=== PATIENT | female | born 2000 | race Caucasian/White ===

== ENCOUNTER 2023-12-24 12:33 | Emergency (ER) | payer MEDICAID ==
[~2023-12-24] VITALS: Ht 165.1 cm; Wt 77.0 kg
[2023-12-24 12:34] VITALS: O2SAT 100
[2023-12-24] MEDS ORDERED: IBUPROFEN 600MG TABLET PO ONE (13:00)
[2023-12-24] MEDS ORDERED: IBUP-2029 MT (14:09)
[2023-12-24 14:50] VITALS: BP 117/85; PULSE 96; RESP 16; TEMP 98.3
== END 2023-12-24 14:51 ==
LOC: ER 12:57
DX: S90.32XA Contusion of left foot, initial encounter (principal); V98.8XXA Other specified transport accidents, initial encounter; Y93.89 Activity, other specified; Y92.89 Other specified places as the place of occurrence of the external cause; Y99.8 Other external cause status
CPT/HCPCS: 81025; 73610; 73630; 99284; Z7610